=== PATIENT | female | born 1990 | race Two or more races ===

== ENCOUNTER 2025-03-08 00:15 | Emergency (ER) | payer MEDICAID ==
[~2025-03-08] VITALS: Ht 162.6 cm; Wt 105.0 kg
[2025-03-08 00:28] VITALS: O2SAT 98
[2025-03-08] MEDS ORDERED: CEPH500C2 MT (00:46)
[2025-03-08] MEDS ORDERED: SULF1TAB48 MT (00:46)
[2025-03-08 01:14] VITALS: BP 112/66; PULSE 104; RESP 18; TEMP 37.1; O2SAT 98
== END 2025-03-08 01:15 | disposition home or self-care (01) ==
LOC: ER 00:15
DX: L02.416 Cutaneous abscess of left lower limb (principal); R60.9 Edema, unspecified
CPT/HCPCS: 99283